=== PATIENT | female | born 1935 | race Caucasian/White ===

== ENCOUNTER 2016-07-13 14:00 | Inpatient (IN) | payer MEDICARE, BC ==
[~2016-07-13] VITALS: Ht 158.8 cm; Wt 58.5 kg
--- NOTE | ~2016-07-13 | DS ---
PATIENT'S NAME: SANTIAGO CASTILLO [facility] AGE: 81 Y [address] ROOM: [address] [address] [place] [facility] [place]: 07/18/2016 Discharge Summary DISCHARGE DATE: 07/23/2016 FAMILY PHYSICIAN: ALCIDES CABA ATTENDING PHYSICIAN: Malcom Ovalles DIAGNOSES: 1. Colonic adenocarcinoma of the transverse colon. 2. History of gastrointestinal stromal tumor. SUMMARY: Santiago Castillo is a 81-year-old female, who has a prior history of carcinoid tumor. The patient has recently underwent a colonoscopy, which revealed adenocarcinoma in the transverse colon. The patient was seen at [facility] by Dr. Ovalles on July 03 to discuss results. She had had a CT scan that revealed an area in the pelvis that measured 4.9 cm in total, which was fluid and soft tissue. The patient had also had a PET scan, which the patient reported showed no abnormalities. Dr. Ovalles discussed surgical treatment options for the adenocarcinoma. The patient was scheduled to undergo a laparoscopic possible open colon resection on July 18, 2016, at [facility]. She underwent a preoperative bowel prep and received Mefoxin 2 g IV preoperatively. She was taken to the operating room where an open right colon resection with extensive enterolysis and repair of enterotomies was performed. Please see Dr. Ovalles's procedure note for specifics. Postoperatively, the patient was allowed activity as tolerated. Langston was placed to dependent drainage. Telemetry was ordered. She was kept n.p.o. except for ice chips, hard candy, and gum. Pulmonary toiletry was encouraged. Kendalls along with Lovenox were ordered for DVT prophylaxis. Mefoxin continued for 18 hours postop. Dilaudid GORE STITCHER along with IV acetaminophen was ordered for pain control. On postop day #1, the patient was sore. She had had nausea, but that had resolved. Blood pressure was 120/65, heart rate was only 38, respirations 14. The patient appeared well. Hemoglobin was 8.8, platelets 91,000. Physical therapy and occupational therapy were ordered. She was started on clear liquids. On postop day #2, the patient denied any nausea or vomiting. She continued on clear liquids until postop day #3, at which time she was advanced to full liquids. GORE STITCHER was discontinued. Tylenol and Motrin were ordered for pain control. She was advanced to diet as tolerated the following day and arrangements were made for the patient to discharge home on July 23. DISCHARGE INSTRUCTIONS: Include no restrictions on diet, no heavy lifting. She will follow up on July [address] [place] [address] Ovalles. DISCHARGE MEDICATIONS: Include, 1. Tylenol Extra-Strength 1000 mg p.o. q.6 hours. 2. Motrin 600 mg p.o. q.8 hours. PATIENT'S NAME: SANTIAGO CASTILLO [facility] AGE: 81 Y [address] ROOM: [place] [address] [place] [facility] [place]: 07/18/2016 Discharge Summary DISCHARGE DATE: 07/23/2016 FAMILY PHYSICIAN: ALCIDES CABA ATTENDING PHYSICIAN: Malcom Ovalles 3. Levothroid 25 mcg p.o. daily. 4. Lopressor 25 mg p.o. twice daily. 5. Omeprazole 40 mg p.o. daily. 6. Sutent 37.5 mg p.o. daily. 7. Centrum multivitamin 1 tablet p.o. daily. 8. Vitamin D 1000 units p.o. daily. 9. Caltrate 600+ vitamin D 1 tablet p.o. daily. 10. Catarina 5/325 one to two p.o. q.4 hours p.r.n. 11. Carafate 1 g p.o. daily. 12. Vitamin B12 1000 mcg p.o. daily. Prescription was written for Catarina 5/325 one to two p.o. q.4 hours p.r.n. pain, dispensing 30 with no refills. Pathology results are pending at this time. For specifics on day-to-day care, please refer to the hospital chart. ARACELIS FUENTES PA-C FOR MD ABDULAZIZ VILA/sujit /[id number] d: 07/25/16620 t: 08/08/16 181, DISCHARGE SUMMARY
--- NOTE | ~2016-07-13 | OR ---
PATIENT'S NAME: SANTIAGO SINGH [facility] AGE: 81 Y [address] ROOM: [address] [address] [place] [facility] [place]: 07/18/2016 OR/Procedure Report DISCHARGE DATE: FAMILY PHYSICIAN: ALCIDES CABA ATTENDING PHYSICIAN: Malcom Davenport SURGEON: Malcom Davenport MD REPORT SPECIALIST: Brendan Pitts PA-C. DATE OF PROCEDURE: 07/18/2016 PREOPERATIVE DIAGNOSIS: Colonic adenocarcinoma transverse colon. POSTOPERATIVE DIAGNOSIS: Colonic adenocarcinoma transverse colon. PROCEDURE: 1. Right colectomy with ileocolic anastomosis. 2. Repair of enterotomies. 3. Extensive adhesiolysis. FINDINGS: The patient had very dense adhesions making mobilization of the bowel quite tedious and dangerous. The tumor was present in the proximal transverse colon. ESTIMATED BLOOD LOSS: 200 mL. COMPLICATIONS: None. INDICATIONS: The patient is a 81-year-old female who has a known history of gastrointestinal stromal tumor. However, she had a colonoscopy that revealed an adenocarcinoma. We discussed resection of this with the patient. The risks, benefits, and alternatives, which included, but were not limited to bleeding, infection, bowel injury, anastomotic leak, poor wound healing, abscess formation. She understood the risks and elected to proceed. DESCRIPTION OF PROCEDURE: The patient was taken to the operating room. She was placed supine. She was given IV sedation and subsequently intubated. Abdomen was prepped with ChloraPrep and sterilely draped. Local anesthetic was infiltrated. In the left upper quadrant, a Veress needle was initially attempted to be inserted. This did not insert easily. Because of this, we aborted this location. Following this in the right upper quadrant, local anesthetic was infiltrated. An optical viewing trocar was used with a camera inserted. Through this, we advanced into the abdominal cavity and pneumoperitoneum was induced. Upon insertion of the camera, there was noted to be some blood felt likely to be sales representative door to door from adhesion tearing from the abdominal wall. There did not appear to be Veress needle or initial trocar injury. Two more trocars were positioned. The first arm was placed in PATIENT'S NAME: SANTIAGO SINGH [facility] AGE: 81 Y [address] ROOM: [address] [address] [place] [facility] [place]: 07/18/2016 OR/Procedure Report DISCHARGE DATE: FAMILY PHYSICIAN: ALCIDES CABA ATTENDING PHYSICIAN: Malcom Davenport the mid abdomen. We attempted to lyse adhesions from this area. It was quite difficult. We were able to find another small open area in the right lower quadrant and another 5 mm trocar was inserted. Adhesiolysis was then begun. The adhesions were relatively dense. Ultimately, we were able to identify the colon. There were very dense interloop adhesions and the pelvis appeared to be mainly frozen. The descending colon was relatively easily visualized. This was very adherent at the pelvic inlet. We were able to visualize the colon up to the splenic flexure. No blue dye was present. There were still some adhesions around our trocar sites that we were not able to lyse. The transverse colon did loop up towards this. Because of this to further visualize these areas, we inserted 2 more trocars. These were both on the left abdomen, and these were both inserted under direct visualization as well. Further extensive adhesiolysis was performed laparoscopically. We then were able to further identify the colon. The tattoo was present in the proximal transverse colon. There were very dense adhesions in the right lower quadrant. We could not mobilize the terminal ileum easily. In performing adhesiolysis laparoscopically, we did create an enterotomy. We were able to control any significant small bowel content leak with a Ashish. We further mobilized this loop of bowel. We had a hard time mobilizing the small bowel. We then turned our attention to the colon. We were able to mobilize the entire right colon from the cecum to the mid transverse colon. This encompassed our planned resection. This was initially performed in a medial lateral fashion and then the peritoneal attachments were incised laterally. The right colon was completely mobile at this juncture down to what was likely our proximal and distal resection sites. However, we could not mobilize the terminal ileum safely as there were continued to be very dense adhesions in the right lower quadrant. We could not identify or separate loops of bowel and could not easily tell the bowel wall from the peritoneum. At this point in time with an enterotomy being present, we did convert to an open operation. A vertical midline incision was carried through the subcutaneous tissues and down through the fascia using electrocautery. The abdominal cavity was entered. We then performed open enterolysis. The bowel was very friable, and on gentle retraction, an enterotomy was created. This was closed in 2 layers with 3-0 Vicryl suture followed by 3-0 silk suture. There were 2 small enterotomies created in the right lower quadrant as well and repaired in 2 layers. These were leak tested. We were able to mobilize significant portion of bowel. We still had difficulty in mobilizing the terminal ileum. The loop appeared to extend down into the pelvis. With the other enterotomies that were created with these dense adhesions, we mobilized the terminal ileum but did not mobilize beyond this as we were concerned we would cause a very difficult situation if an enterotomy would be created down into the pelvis. We selected our proximal and distal resection sites and divided these areas with ANDIE staplers. The specimen was passed off. Once the bowel was divided, the colon was placed down to the small bowel. With our minimal mobility of the terminal ileum and our concerns for attempting further mobilization, we PATIENT'S NAME: SANTIAGO SINGH [facility] AGE: 81 Y [address] ROOM: [address] [address] [place] [facility] [place]: 07/18/2016 OR/Procedure Report DISCHARGE DATE: FAMILY PHYSICIAN: ALCIDES CABA ATTENDING PHYSICIAN: Malcom Davenport could not easily perform a [id number] staple anastomosis. Because of this, we did perform a hand-sewn end-to-side entero-colonic anastomosis. Posterior sutures of 3-0 silk were placed. These were serosal sutures along the entire posterior wall to hold the 2 ends in position. An enterotomy and colotomy were then created using running 3-0 PDS suture. The bowel was sewn in its entire circumference using a running 3-0 PDS suture. The anastomosis was leak tested, it was intact. Appeared to be adequate lumen size. The operative field was then inspected. We again leak tested the anastomosis as well as the areas of enterotomy. The abdominal cavity was copiously irrigated. The fluid was then removed. The midline fascia was then closed with looped 0 PDS suture and skin closure was accomplished with madina. A sterile dressing was placed. The patient was extubated and sent to recovery in good condition. MALCOM J MD LOLLY DAVENPORT/sujit /[id number] d: 07/18/16 2217 t: 07/19/16 1658, OPERATIVE SUMMARY
[~2016-07-13 14:00] MED LIST: CALTRATE 600 +1 EAC1 PO; CARAFATE1 GM PO; CENTRUM COMPLE1 EACH PO; HYDROCODON-ACE1 EAC4 PO; LEVOTHROID (SY25 MCG PO; LOPRESSOR25 MG PO; OMEPRAZOLE40 MG PO; SUTENT37.5 MG PO; VITAMIN B-121000 MCG PO; VITAMIN D1000 UNI1 PO
[2016-07-18 10:52] LABS: HEMATOCRIT 33.9 % (33.0-46.0); HEMOGLOBIN 11.2 g/dL (10.0-15.0); MCH 35.7 pg (27.0-34.0); MPV 10.5 fl (9.4-12.4); RBC 3.14 M/uL (3.50-5.50); RDW-CV 15.8 % (11.9-14.6); WBC 3.3 K/uL (4.0-11.0)
[2016-07-18 10:57] LABS: INR - (THERAPEUTIC) 1.03 (0.92-1.07); PROTIME 10.8 SECONDS (9.8-11.4)
[2016-07-18 11:05] LABS: ALBUMIN 3.5 gm/dL (3.5-5.0); ANION GAP 12.7 (10.0-19.0); CALCIUM 9.3 mg/dL (8.5-10.5); CREATININE 0.9 mg/dL (0.5-1.1); POTASSIUM 3.7 mMol/L (3.7-5.1); TOTAL BILIRUBIN 0.4 mg/dL (0.0-1.5); TOTAL PROTEIN 6.5 g/dL (6.0-8.4)
--- NOTE | 2016-07-19 04:28 | NUR ---
Significant Event: Patient arrived to floor at 1745 last night. Post op, transverse cholectomy. 6 stab sites and midline incision to abdomen with shadow drainage. Dilaudid AGILE JAVA DEVELOPER 0.2 demand/15 min lockout. Continuous rate d/c due to over sedation. C/o nausea x 1, Zofran given providing relief. IV to R) anterior forearm. Recieves IV Ofirmev Q6H, IV Lopressor Q6H, IV Mefoxin Q6H. LR currently running at 125ml/hr. Tele on with no calls, may d/c if no call for 48hrs. On 1L of O2 with sats in high 90s. Langston, call if UOP is <120 over 4 hours. VSS, SBP in the 130s-140s. Patient is NPO with sips for meds. Follow up: Monitor UOP. Pt has chemo drug that needs to be brought in by family.
[2016-07-19 05:55] LABS: HEMOGLOBIN 8.8 g/dL (10.0-15.0); MCH 35.9 pg (27.0-34.0); RBC 2.45 M/uL (3.50-5.50); RDW-CV 15.9 % (11.9-14.6); WBC 4.6 K/uL (4.0-11.0)
[2016-07-19 05:57] LABS: HEMATOCRIT 26.7 % (33.0-46.0)
[2016-07-19 06:10] LABS: ANION GAP 8.7 (10.0-19.0); BLOOD UREA NITROGEN 10 mg/dL (6-24); CALCIUM 7.8 mg/dL (8.5-10.5); CHLORIDE 106 mMol/L (96-110); CO2 27 mMol/L (22-32); CREATININE 0.7 mg/dL (0.5-1.1); ESTIMATED GFR (MDRD EQUATION) > 60; POTASSIUM 3.7 mMol/L (3.7-5.1); SODIUM 138 mMol/L (135-145)
--- NOTE | 2016-07-19 16:00 | NUR ---
SIGNIFICATN EVENT: PATIENT ALERT AND ORIENTED. 6 LAP SITES FROM COLON RESECTION. MIDLINE INCISION TO ABDOMEN. DILAUDID PRESIDENTIAL SUPPORT SPECIALIST 0.2MG PER DEMAND WITH 15 MIN LOCKOUT. NO COMPLAINTS OF NAUSEA DURING DAY. PATIENT SHOWED VERBAL AND NON VERBAL SIGNS OF PAIN BUT SHOWED RELIEF WITH PRESIDENTIAL SUPPORT SPECIALIST. RECIEVING IV OFIRMEV Q6H AND IV LOPRESSOR Q6H. PATIENT ON TELE. WAS ON BEDREST AT BEGINNING OF SHIFT BUT WAS ABLE TO WALK TO DOOR BY END OF SHIFT. NPO WITH SIPS ON WATER FOR ORAL MEDS. PATIENT ALSO SAT UP IN CHAIR FOR A FEW HOURS. CHEMO MED SUTENT BROUGHT IN BY FAMILY BUT BEING HELD AT THIS TIME PER DR. CHAMPAGNE UNTIL PATIENT IS ON A SOFT/REGULAR DIET. OK TO HAVE FEW SIPS AND ICE CHIPS. FAMILY HERE TO VISIT THIS AFTERNOON. FOLLOW UP: CONTINUE TO MONITOR.
--- NOTE | 2016-07-19 16:37 | NUR ---
SPOKE TO PATIENT REGARDING CM AND OUR ROLE. PATIENT LIVES IN OWN HOME WITH SPOUSE SHE IS PLANNING ON RETURNING THERE ONCE SHE IS READY FOR DISCHARGE. PATIENT DOES NOT ANTICIPATE ANY DISCHARGE NEEDS AT THIS TIME.
--- NOTE | 2016-07-19 17:29 | NUR ---
I HAVE REVIEWED AND AGREE WITH CHARTING DONE BY SN AL.
[2016-07-20 05:01] LABS: BASOPHIL % 0.3 %; EOSINOPHIL % 0.5 %; HEMATOCRIT 29.1 % (33.0-46.0); HEMOGLOBIN 9.5 g/dL (10.0-15.0); IMMATURE GRANULOCYTE % 0.5 %; LYMPHOCYTE # 0.9 K/uL (0.8-4.0); LYMPHOCYTE % 22.7 %; MCH 35.4 pg (27.0-34.0); MCHC 32.6 gm/dL (32.0-36.5); MCV 108.6 fl (83.0-98.0); MONOCYTE # 0.2 K/uL (0.0-1.0); MPV 10.1 fl (9.4-12.4); NEUTROPHIL # (ANC) 2.7 K/uL (1.8-7.8); NRBC % 0 /100WBC (0-0.00); RBC 2.68 M/uL (3.50-5.50); RDW-CV 16.2 % (11.9-14.6); WBC 3.8 K/uL (4.0-11.0)
[2016-07-20 05:04] LABS: PLATELET COUNT 111 K/uL (150-450)
[2016-07-20 05:14] LABS: ALBUMIN 2.7 gm/dL (3.5-5.0); ANION GAP 8.4 (10.0-19.0); BLOOD UREA NITROGEN 6 mg/dL (6-24); CALCIUM 8.1 mg/dL (8.5-10.5); CHLORIDE 107 mMol/L (96-110); CO2 28 mMol/L (22-32); CREATININE 0.6 mg/dL (0.5-1.1); ESTIMATED GFR (MDRD EQUATION) > 60; POTASSIUM 3.4 mMol/L (3.7-5.1); SODIUM 140 mMol/L (135-145)
[2016-07-20 05:15] LABS: PHOSPHORUS 1.8 mg/dL (2.5-4.9)
--- NOTE | 2016-07-20 05:46 | NUR ---
Significant Event: PATIENT IS ALERT AND ORIENTED. VSS. DILAUDID DELIVERY SUPERVISOR 0.2 MG EVERY 15 MINUTES. ON 1L O2 PER NC. PUENTE D/C'D AT 0530. DRESSINGS TO ABD. SIPS AND CHIPS. NO NAUSEA. RATES PAIN 3-4/10. Follow up:
--- NOTE | 2016-07-20 17:18 | NUR ---
SIGNIFICANT EVENT: PATIENT ALERT AND ORIENTED. STATES THAT PAIN IS DOING BETTER THAN YESTERDAY. SWITCHED FROM NPO TO CLEAR LIQUIDS. UP AND WALKING IN ROOM WITH ONE PERSON ASSIST. WALKED TO AND USED BATHROOM THREE TIMES TODAY. PATIENT STILL ON TELE. LAST DOSE OF OFIRMEV GIVEN AT 1100. FOLLOW UP: CONTINUE TO MONITOR.
--- NOTE | 2016-07-20 19:39 | NUR ---
I HAVE REVIEWED AND AGREE WITH CHARTING DONE BY SN AL.
--- NOTE | 2016-07-21 03:03 | NUR ---
Significant Event: A/O X3 AND COOPERATIVE WITH CARES. ON DILAUDID LOG HOOKER DEMAND ONLY AND IS CONTROLLING PAIN WELL. 6 LAP SITES WITH MIDLINE INCISIONS ALL DRESSING DRY/INTACT. BOWEL SOUNDS HYPOACTIVE. NO FATUS YET. PATIENT STATES SHE HAS BEEN HAVING SOME ABDOMINAL GAS PAIN OVERNIGHT. NO NAUSEA. IS ON CLEAR LIQUIDS, GOING SLOW AND TOLERATING WELL. VOIDING WELL AND FEELS LIKE SHE IS EMPTYING WELL. IV TO L) HAND FLUSHES WELL AND IV FLUIDS INFUSING WITHOUT DIFFICULTY. UP WITH SBA. SLEPT OFF/ON THROUGH NIGHT. OFF TELE NOW. Follow up:
[2016-07-21 05:26] LABS: ALBUMIN 2.7 gm/dL (3.5-5.0); ANION GAP 8.4 (10.0-19.0); BLOOD UREA NITROGEN 5 mg/dL (6-24); CALCIUM 8.2 mg/dL (8.5-10.5); CHLORIDE 106 mMol/L (96-110); CO2 28 mMol/L (22-32); CREATININE 0.5 mg/dL (0.5-1.1); ESTIMATED GFR (MDRD EQUATION) > 60; POTASSIUM 3.4 mMol/L (3.7-5.1); SODIUM 139 mMol/L (135-145)
[2016-07-21 05:30] LABS: PHOSPHORUS 1.9 mg/dL (2.5-4.9)
--- NOTE | 2016-07-21 11:45 | NUR ---
Attempted to see pt 2 times this morning. Pt was busy with nursing both times. Will attempt to see again in the afternoon. Missy Mesa, PT
--- NOTE | 2016-07-21 19:45 | NUR ---
Significant Event: Pt ambulates in room and with PT with SBA. removed dressing this am. She has madina midline to abdomen and at lap sites. No redness or drainage from incision. She tolerated clear liq and full liq and is requesting food. She has positive bowels sounds. She had 3 liq BM's today. APPLICATION INTERNSHIP was dc'd and she was started on tylenol and motrin scheduled around the clock. She denies need for pain medication. She received IV K+phos this afternoon and then was saline locked.
--- NOTE | 2016-07-22 04:23 | NUR ---
Significant Event: Patient is A&O x 3. 6 lap sites stapled, open to air. Midline incision to abdomen, stapled, open to air. IV to L) hand SL, flushes well. Scheduled Motrin Q8H and Tylenol Q6H. Ambulates with SBA to bathroom. Strict urine output. Had 4 loose stools overnight. Full liquid diet, tolerating well. Follow up: Continue per plan of care. Cancer med in patient med box, restart when patient taking solid food. It is a patient home med.
[2016-07-22 05:07] LABS: BASOPHIL % 0.7 %; EOSINOPHIL % 1.4 %; HEMATOCRIT 27.3 % (33.0-46.0); HEMOGLOBIN 8.6 g/dL (10.0-15.0); IMMATURE GRANULOCYTE % 0.4 %; LYMPHOCYTE # 0.9 K/uL (0.8-4.0); LYMPHOCYTE % 33.1 %; MCH 35.8 pg (27.0-34.0); MCHC 31.5 gm/dL (32.0-36.5); MCV 113.8 fl (83.0-98.0); MONOCYTE # 0.2 K/uL (0.0-1.0); MONOCYTE % 5.7 %; MPV 11.4 fl (9.4-12.4); NEUTROPHIL # (ANC) 1.7 K/uL (1.8-7.8); NEUTROPHIL % 58.7 %; NRBC % 0 /100WBC (0-0.00); PLATELET COUNT 90 K/uL (150-450); RDW-CV 16.5 % (11.9-14.6); WBC 2.8 K/uL (4.0-11.0)
[2016-07-22 06:10] LABS: ALBUMIN 2.7 gm/dL (3.5-5.0); ANION GAP 10.8 (10.0-19.0); BLOOD UREA NITROGEN 5 mg/dL (6-24); CALCIUM 8.6 mg/dL (8.5-10.5); CHLORIDE 107 mMol/L (96-110); CO2 27 mMol/L (22-32); CREATININE 0.7 mg/dL (0.5-1.1); ESTIMATED GFR (MDRD EQUATION) > 60; MAGNESIUM 1.8 mg/dL (1.8-2.6); PHOSPHORUS 2.4 mg/dL (2.5-4.9); POTASSIUM 3.8 mMol/L (3.7-5.1); SODIUM 141 mMol/L (135-145)
--- NOTE | 2016-07-22 10:52 | NUR ---
A-NUTRITION F/U S/P TRANVERSE COLECTOMY D/T COLONIC ADENOCARCINOMA. CURRENTLY ON CHEMO (+)BS; LOOSE STOOLS, (+)FLATUS. DENIES NAUSEA. TOLERATED CLEAR LIQUIDS AND FULL LIQUID DIET WITHOUT DIFFICULTY. LABS: NA 141, K+ 3.8, GLU 85, BUN 5, HOUSEKEEPING MANAGER 0.7, ALB 2.7 MEDS: DILAUDID DIET RX: SOFT DIET (ADVANCED TODAY AT BREAKFAST); ENSURE CLEAR TID AND ENSURE ENLIVE TID. PO INTAKE 25-100%. EST NUTR NEEDS: 2510-8221 KCALS AND 59-77 GM PROTEIN D-AT NUTRITION RISK W/INADEQUATE INTAKE OF NUTRIENTS R/T ALTERED GI FXN AEB RECENT GI SURGERY, LIQUID DIET. PT ALSO AT RISK W/UNINTENDED WT LOSS BRACELET AND BROOCH MAKER D/T ALTERED TASTE AEB PT REPORT. I-1)D/C ENSURE CLEAR D/T ADVANCEMENT OF DIET 2)CONTINUE ENSURE ENLIVE TID W/MEALS TO PROVIDE ADDITIONAL NUTRIENTS M/E-GOAL: PO INTAKE >/=50% BY NEXT F/U 1)F/U PO INTAKE, SUPPLEMENT, GI, AND POC IN 3-5 DAYS 2)ASSIST NEEDED
--- NOTE | 2016-07-22 16:03 | NUR ---
Significant Event:Patient up in chair/BR. Ambulated in aggarwal. Abdominal incision/ lap sites approximated with madina. Patient having loose stools. Routine tylenol and motrin. Minimal pain Follow up:
--- NOTE | 2016-07-23 02:16 | NUR ---
Significant Event: Patient rests in bed throughout the night. Up to bathroom with stand-by assist. Tylenol 1000mg held at 2300 as patient was sound asleep and did not wake when spoke to. Up about an hour later and reported pain of only 2 and stated she did not need the pain medication. Still having loose stools and reports that is normal for her. Chemo med restarted last night since she ate a regular diet and tolerated it well. Plesant and cooperative with cares. Follow up: Possible discharge today.
--- NOTE | 2016-07-23 10:26 | NUR ---
I agree with Tatiana Escobedo's documentation from 6a to 11 am.
[2016-07-23] MEDS ORDERED: MOTRIN600 MG PO (12:54)
[2016-07-23] MEDS ORDERED: TYLENOL EXTRA500 MG PO (12:54)
--- NOTE | 2016-07-23 15:15 | NUR ---
Patient alert and oriented x3, patient to discharge at this time Vts T98.0, BP125/69,P65,R18, 97%RA, no c/o pain or discomfort, provided teaching on discharge instrucitons and home medications, patient verbalized understanding, patient is aware she needs to call and make a follow up appointment with primary physician, patient discharged home with two sisters, belongings and home medicaiton sent with patient.
--- NOTE | 2016-07-27 11:13 | NUR ---
Post hospitalization follow up call made to patient. Patient reports that she is hurting. She is taking her pain medication, but not until the pain gets bad. Instructed patient to take medication routinely for the next day and try to get on top of the pain. Denies questions concerning her follow up appointment or medications. States the during her hospital stay "everyone was very good to me".
== END 2016-07-23 15:40 | disposition disaster alternative care site (69) | DRG 330 ==
LOC: GMSU 07-18 08:05
PROVIDERS: Nurse Anesthetist, Certified Registered; ADMIT Surgery
PROC: 0DTF4ZZ Resection of Right Large Intestine, Percutaneous Endoscopic Approach (ICD-10-PCS; principal; 2016-07-18)
PROC: 0DNL4ZZ Release Transverse Colon, Percutaneous Endoscopic Approach (ICD-10-PCS; 2016-07-18)
DX: C18.4 Malignant neoplasm of transverse colon (principal); C49.A0 Gastrointestinal stromal tumor, unspecified site; K21.9 Gastro-esophageal reflux disease without esophagitis; K66.0 Peritoneal adhesions (postprocedural) (postinfection)
CPT/HCPCS: C9113; J0131; J0694; J1170; J1650; J2405; J3480; J7030; J7050; J7120

== ENCOUNTER 2016-08-01 15:31 | Inpatient (IN) | payer MEDICARE, BC ==
[~2016-08-01] VITALS: Ht 157.5 cm; Wt 66.5 kg
--- NOTE | ~2016-08-01 | PN ---
PATIENT'S NAME: SANTIAGO CASTILLO [facility] AGE: 81 Y [address] ROOM: [address] [address] LOC[place] [facility] [place] DATE: 08/01/2016 Progress Notes DISCHARGE DATE: FAMILY PHYSICIAN: ALCIDES CABA ATTENDING PHYSICIAN: Malcom Ovalles DATE OF SERVICE: 08/08/2016 Mrs. Castillo was hospitalized on Dr. Ovalles's Surgical Service on 08/01/2016 for acute abdominal pain. A CAT scan revealed free fluid and free air compatible with perforation. Her physical examination was compatible with a perforated viscus. On 08/01/2016, Dr. Ovalles performed an exploratory laparotomy with repair of anastomotic leak. There was no significant biliary staining. It was difficult to identify the perforation. A very small opening was present on the anterior portion of the anastomosis. The patient recovered well and was discharged on the seventh postoperative day. We suspect the sunitinib predisposed the patient to the perforation. We recommend in the future holding this sunitinib until at the very earliest, the first postoperative visit. The timing on perioperative management for sunitinib is not well clarified. In the future, we would probably hold the sunitinib at least 7 days prior to a surgical procedure and at least 7 days afterwards. The patient's appointment in the [facility] was canceled. We will see her on the Sunday in August and presumably continue the sunitinib for her GI stromal tumor. While the patient was in the hospital, we reviewed the good news on the specimen obtained when Dr. Ovalles performed the right colectomy with ileocolic anastomosis on 07/18/2016. At that time, the patient had a pathologic stage I (pT2b N0, M0) grade 2 adenocarcinoma of the colon. No further adjuvant therapy is warranted. The chance for cure is excellent, over 90%, so no formal surveillance program is warranted. If the patient has a very excellent and continuing response to sunitinib, in very, we might consider a surveillance colonoscopy in July of 2017, but it is unlikely that will occur. MD JOSSELIN SPRING/sujit PATIENT'S NAME: SANTIAGO CASTILLO [facility] AGE: 81 Y [address] ROOM: [address] [address] LOC[place]: [facility] [place] DATE: 08/01/2016 Progress Notes DISCHARGE DATE: FAMILY PHYSICIAN: ALCIDES CABA ATTENDING PHYSICIAN: Malcom Ovalles /[id number] CC: MD Mikaela Lisa MD d: t: 08/08/16 1449, PROGRESS NOTES
--- NOTE | ~2016-08-01 | DS ---
PATIENT'S NAME: SANTIAGO [facility] AGE: 81 Y [address] ROOM: [address] [address] LOCATION: [facility] ADMIT DATE: 08/01/2016 Discharge Summary DISCHARGE DATE: 08/08/2016 FAMILY PHYSICIAN: ALCIDES CABA ATTENDING PHYSICIAN: Malcom Ovalles DIAGNOSES: 1. Anastomotic leak with acute abdomen, status post recent colon resection. 2. History of gastrointestinal stromal tumor, metastatic, on Sutent. 3. 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 SUMMARY: Santiago is a 81-year-old female, who has a complicated past surgical history. The patient underwent a right colon resection with Dr. 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 The patient did well postoperatively and was discharged home. She was seen in followup by Dr. Ovalles on July 31 and was doing very well at that time. On the morning of August 01, she developed severe abdominal pain. A CT scan revealed free air and free fluid concerning for perforation. She was brought to the [facility] where Dr. Ovalles noted peritoneal signs. He recommended proceeding to the operating room for an exploratory laparotomy. The patient was taken to the operating room on August 01, where she was found to have a small leak at the anastomosis. Please see Dr. Ovalles's procedure note for specifics. This area was oversewn. Postoperatively, the patient was allowed activity as tolerated. An NG tube was placed to low continuous suction. Langston to dependent drainage. Pulmonary toiletry was encouraged. Lovenox was ordered for DVT prophylaxis. She was continued on Cipro and Flagyl. A Dilaudid SHAPING MACHINE OPERATOR along with IV acetaminophen was ordered for pain control. On postop day #1, the patient was sore, but doing okay overall. She had occasional nausea. Vital signs were stable. White blood cell count was 4.2. NG tube output was 295. Physical Therapy and Occupational Therapy were consulted. On postop day #2, the patient had minimal pain. She was not passing any flatus. Her NG tube was removed. Phosphorus was noted to be low at 1.2, and this was replaced throughout her hospitalization. Dr. Vegsa did see the patient and recommended holding off on the Sutent until she returns for followup. On postop day #3, the patient was hungry. She was passing gas and had bowel movements. White blood cell count was 5.0. She was started on clear liquids, and boost shakes were also ordered. The patient was advanced to full liquids on postop day #4 and low-residue diet on postop day #5. The patient had been having several bowel movements and this was checked for C. diff which was negative. On postop day #6, the patient was doing okay. She was stooling. She had heartburn which was typical for her. The patient felt that she needed one more day to increase her strength and mobility. Cipro and Flagyl were discontinued. On postop day #7, the patient states that she wants to go home. She is working with Occupational Therapy at this time. She showered. She has very little pain. She is eating some. She still has the PATIENT'S NAME: SANTIAGO [facility] AGE: 81 Y [address] ROOM: [address] [address] LOCATION: [facility] ADMIT DATE: 08/01/2016 Discharge Summary DISCHARGE DATE: 08/08/2016 FAMILY PHYSICIAN: ALCIDES CABA. ATTENDING PHYSICIAN: Malcom Ovalles reflux. Her heartburn which again is typical for her. Arrangements were made for the patient to discharge home. DISCHARGE INSTRUCTIONS: Include no restrictions on diet. No heavy lifting for 6 weeks. She will follow up with Dr. Ovalles in [place] on August 14 for staple removal. DISCHARGE MEDICATIONS: Include resumin. Lopressor 25 mg p.o. daily. 2. Omeprazole 40 mg p.o. daily. 3. Carafate 1 g p.o. daily. 4. Levothroid 25 mcg p.o. daily before breakfast. 5. She will hold her Sutent until followup appointment. 6. Continue with multivitamin, vitamin D, Caltrate, vitamin B12. Prescriptions were written for: 1. Magnesium oxide 800 mg p.o. twice daily, dispensing 10 with no refills. 2. J-Xgyd-nfjsvoc one tablet p.o. twice daily dispensing #14 with no refills. The patient has hydrocodone at home from her last hospitalization which she can continue for pain control or she can take Tylenol as needed. For specifics on day-to-day care, please refer to the hospital chart. ARACELIS FUENTES PA-C FOR MD ABDULAZIZ VILA/conniel /[id number] d: 08/09/16 0402 t: 08/24/16 1121, DISCHARGE SUMMARY
--- NOTE | ~2016-08-01 | HP ---
PATIENT'S NAME: SANTIAGO [facility] AGE: 81 Y [address] ROOM: [place] [address] LOCATION: [facility] ADMIT DATE: 08/01/2016 History & Physical DISCHARGE DATE: FAMILY PHYSICIAN: PHYSICIAN, UNKNOWN ATTENDING PHYSICIAN: Malcom Ovalles DATE OF SERVICE: CHIEF COMPLAINT: Abdominal pain. HISTORY OF PRESENT ILLNESS: The patient is a 81-year-old female, on whom I had performed a right colectomy 2 weeks ago. She had severe adhesions. She had history of multiple operations for previous gastrointestinal stromal tumor. Her pathology was a T2 N0 tumor. She was 2 weeks out, I actually saw her yesterday in clinic where she was having no pain, bowels were working without difficulty, said she was feeling very well. She said she went home, was feeling good, sat down, ate supper. Not long after supper, she developed severe pain, described as some of the worse pain in her , said this got worse throughout the night, presented to [place] today with ongoing abdominal pain. She continues to have a low white blood cell count, but has been on her sunitinib with her abdominal pain. She had a CT scan, which revealed free fluid and free air, concerning for perforation. She was brought to [facility] where she was found to have peritonitis by examination. She never had pain similar to this in the past. PAST MEDICAL HISTORY: Please see most recent admit note as this is not changed. PAST SURGICAL HISTORY: Multiple abdominal operations I believe starting back in 2004 where her initial stromal tumor was identified. PHYSICAL EXAMINATION: GENERAL: She is an ill-appearing 81-year-old female. VITAL SIGNS: She is tachycardic. Has a low-grade temperature of 101.1. ABDOMEN: Her abdomen is rigid consistent with peritonitis. ASSESSMENT: 1. Perforated viscus. 2. Colonic adenocarcinoma. 3. Gastrointestinal stromal tumor. PLAN: PATIENT'S NAME: SANTIAGO [facility] AGE: 81 Y [address] ROOM: [place] [address] LOCATION: [facility] ADMIT DATE: 08/01/2016 History & Physical DISCHARGE DATE: FAMILY PHYSICIAN: PHYSICIAN, UNKNOWN ATTENDING PHYSICIAN: Malcom Ovalles At this point in time, I discussed the findings with Santiago. She seems to have delayed perforation likely secondary to recent operation, malnutrition, and potentially sunitinib causing delayed wound healing. I discussed with her the need for exploration and difficulties associated with this with her large number of adhesions with this being 2 weeks post laparotomy. We discussed risks of surgery, which include bleeding; infection; potential need for ileostomy; potential findings; discussed ongoing enterotomies with further leak, sepsis, and even . She understands these risks, but understands the need to proceed. Please see old hospital chart for medications, past history, and outside of her history of present illness. Review of systems has not changed. MALCOM MD LOLLY ROMAN/modl /[id number] D: [id number] T: [id number] HISTORY & PHYSICAL
--- NOTE | ~2016-08-01 | OR ---
PATIENT'S NAME: SANTIAGO [facility] AGE: 81 Y [address] ROOM: [address] [address] LOCATION: [facility] ADMIT DATE: 08/01/2016 OR/Procedure Report DISCHARGE DATE: FAMILY PHYSICIAN: PHYSICIAN, UNKNOWN ATTENDING PHYSICIAN: Malcom Davenport SURGEON: Malcom Davenport MD PEST MANAGEMENT SUPERVISOR: Brendan Pitts PA-C. DATE OF PROCEDURE: 08/01/2016 PREOPERATIVE DIAGNOSIS: Perforated viscus. POSTOPERATIVE DIAGNOSIS: Anastomotic leak. PROCEDURE: Exploratory laparotomy with repair of anastomotic leak. FINDINGS: Turbid fluid was present in the abdomen. No significant biliary staining. Initially, the perforation was not able to be identified, however, a very small opening was present on the anterior portion of the anastomosis. ESTIMATED BLOOD LOSS: Less than 100 mL. COMPLICATIONS: None. INDICATIONS: The patient is a 81-year-old female, who had a laparotomy with a right colectomy 2 weeks ago. She presented with perforated viscus and signs of peritonitis. We discussed laparotomy with the patient; the risks, benefits, and alternatives associated with this; which include, bleeding, infection, inability to find a leak, ongoing leak, and possibility of an ostomy. She understood the risks of surgery and elected to proceed. DESCRIPTION OF PROCEDURE: The patient was taken to the operating room. She was supine. She was given IV sedation and subsequently intubated. Her abdomen was prepped with ChloraPrep and sterilely draped. A vertical midline incision was carried into the subcutaneous tissues. The suture from her previous laparotomy was still present. We cut the suture and we were able to enter the abdominal cavity. Upon entering the abdominal cavity, there was turbid fluid present, it was malodorous. The bowel on the left side of the abdomen was relatively free and mobile. However, this again extended into the pelvis with dense adhesions that were there previously. We turned our attention toward the area of anastomosis, there were very dense adhesions towards this area, however, we were able to mobilize some of the bowel in order to visualize our anastomosis. There was a small amount of fibrinous exudate in this area, but no bile-staining. The anastomosis initially appeared completely intact. The bowel was very difficult to free. We were able to identify our areas of previously repaired enterotomies, these appeared PATIENT'S NAME: SANTIAGO SINGH [facility] AGE: 81 Y [address] ROOM: [place] [address] LOCATION: [facility] ADMIT DATE: 08/01/2016 OR/Procedure Report DISCHARGE DATE: FAMILY PHYSICIAN: PHYSICIAN, UNKNOWN ATTENDING PHYSICIAN: Malcom Davenport intact. We placed pressure on the colon and still we were not able to get significant bubbling from this area. We did this under water and still could not show evidence of leak. However, with further manipulation, a small bubble was able to be seen from this area of concern that was right on the anterior aspect of our previous anastomosis, right at the position of a knot. After further inspection, we were able to identify a very small perforation, only several millimeters in size. Even with manipulation of the bowel, we could not get a significant amount of material to express from this area. However, there was no other area of identifiable leak. We contemplated performing an ostomy, but with the bowel loops extending into the pelvis and inability to easily mobilize the bowel, we felt this may be riskier than performing primary repair of this small area. The small perforation was closed with interrupted 3-0 Vicryl suture. We then were able to imbricate the portion of the cecum over the anastomosis to protect it as well, this was performed using interrupted 3-0 silk suture. We again leak tested it and there was no bubbling present. The operative field was then inspected, there were no abnormalities seen at the stomach or duodenum. The colon extending down to the pelvis was also normal. The operative field was inspected, it appeared hemostatic, it was copiously irrigated. The fluid was removed. The midline fascia was then closed with looped #1 PDS suture and interrupted 0 Vicryl sutures. Subcutaneous tissues were copiously irrigated. The skin edges were then approximated with madina. Sterile dressing was placed. The patient was extubated and sent to recovery room. All sponge, needle, and instrument counts were reported as correct. Brendan Pitts was necessary for retraction, visualization, and hemostasis throughout the case. MALCOM DAVENPORT MD BJO/conniel /[id number] d: 08/02/16 0113 t: 08/08/16 1813, OPERATIVE SUMMARY
[~2016-08-01 15:31] MED LIST changes: +MOTRIN600 MG PO; +TYLENOL EXTRA500 MG PO
[2016-08-02 05:20] LABS: HEMATOCRIT 24.9 % (33.0-46.0); MCH 35.1 pg (27.0-34.0); MCHC 32.1 gm/dL (32.0-36.5); MCV 109.2 fl (83.0-98.0); MPV 9.6 fl (9.4-12.4); RBC 2.28 M/uL (3.50-5.50); RDW-CV 16.1 % (11.9-14.6); WBC 4.2 K/uL (4.0-11.0)
[2016-08-02 05:22] LABS: PLATELET COUNT 231 K/uL (150-450)
[2016-08-02 05:31] LABS: ANION GAP 11.3 (10.0-19.0); BLOOD UREA NITROGEN 12 mg/dL (6-24); CALCIUM 7.9 mg/dL (8.5-10.5); CHLORIDE 105 mMol/L (96-110); CO2 26 mMol/L (22-32); CREATININE 0.6 mg/dL (0.5-1.1); ESTIMATED GFR (MDRD EQUATION) > 60; SODIUM 138 mMol/L (135-145)
[2016-08-02 05:33] LABS: POTASSIUM 4.3 mMol/L (3.7-5.1)
[2016-08-02 05:52] LABS: ABSOLUTE NEUTROPHIL CT (ANC) 3.5 K/uL (1.8-7.8); BANDED NEUTROPHIL # 1.4 K/uL (0.0-0.1); BANDED NEUTROPHILS % 34 %; LYMPHOCYTE # 0.6 K/uL (0.8-4.0); LYMPHOCYTE % 14 %; MONOCYTE # 0.1 K/uL (0.0-1.0); SEGMENTED NEUTROPHIL # 2.1 K/uL (1.8-7.8); SEGMENTED NEUTROPHIL % 50 %
[2016-08-03 05:08] LABS: BASOPHIL % 0.2 %; EOSINOPHIL % 0.2 %; HEMATOCRIT 24.1 % (33.0-46.0); IMMATURE GRANULOCYTE % 0.7 %; LYMPHOCYTE # 0.6 K/uL (0.8-4.0); LYMPHOCYTE % 13.3 %; MCV 108.6 fl (83.0-98.0); MONOCYTE # 0.2 K/uL (0.0-1.0); MONOCYTE % 3.8 %; MPV 9.7 fl (9.4-12.4); NEUTROPHIL # (ANC) 3.7 K/uL (1.8-7.8); NEUTROPHIL % 81.8 %; NRBC % 0 /100WBC (0-0.00); RBC 2.22 M/uL (3.50-5.50); RDW-CV 15.8 % (11.9-14.6); WBC 4.5 K/uL (4.0-11.0)
[2016-08-03 05:11] LABS: HEMOGLOBIN 7.8 g/dL (10.0-15.0); MCH 35.1 pg (27.0-34.0); MCHC 32.4 gm/dL (32.0-36.5); PLATELET COUNT 290 K/uL (150-450)
[2016-08-03 05:31] LABS: ALBUMIN 2.2 gm/dL (3.5-5.0); ANION GAP 9.6 (10.0-19.0); BLOOD UREA NITROGEN 11 mg/dL (6-24); CALCIUM 8.1 mg/dL (8.5-10.5); CHLORIDE 102 mMol/L (96-110); CO2 29 mMol/L (22-32); CREATININE 0.5 mg/dL (0.5-1.1); ESTIMATED GFR (MDRD EQUATION) > 60; POTASSIUM 3.6 mMol/L (3.7-5.1); SODIUM 137 mMol/L (135-145)
[2016-08-03 05:32] LABS: PHOSPHORUS 1.2 mg/dL (2.5-4.9)
[2016-08-04 05:48] LABS: BASOPHIL % 0.4 %; EOSINOPHIL % 0.2 %; HEMOGLOBIN 8.4 g/dL (10.0-15.0); IMMATURE GRANULOCYTE % 0.6 %; LYMPHOCYTE # 0.9 K/uL (0.8-4.0); LYMPHOCYTE % 17.7 %; MCH 34.3 pg (27.0-34.0); MCHC 32.3 gm/dL (32.0-36.5); MCV 106.1 fl (83.0-98.0); MONOCYTE # 0.2 K/uL (0.0-1.0); MONOCYTE % 3.6 %; MPV 9.4 fl (9.4-12.4); NEUTROPHIL # (ANC) 3.9 K/uL (1.8-7.8); NEUTROPHIL % 77.5 %; NRBC % 0 /100WBC (0-0.00); PLATELET COUNT 329 K/uL (150-450); RBC 2.45 M/uL (3.50-5.50); RDW-CV 15.4 % (11.9-14.6)
[2016-08-04 06:02] LABS: ALBUMIN 2.2 gm/dL (3.5-5.0); ANION GAP 12.5 (10.0-19.0); CHLORIDE 103 mMol/L (96-110); CO2 26 mMol/L (22-32); CREATININE 0.5 mg/dL (0.5-1.1); ESTIMATED GFR (MDRD EQUATION) > 60; POTASSIUM 3.5 mMol/L (3.7-5.1); SODIUM 138 mMol/L (135-145)
[2016-08-04 06:04] LABS: BLOOD UREA NITROGEN 5 mg/dL (6-24); PHOSPHORUS 1.2 mg/dL (2.5-4.9)
[2016-08-05 05:28] LABS: ALBUMIN 2.3 gm/dL (3.5-5.0); ANION GAP 10.6 (10.0-19.0); BLOOD UREA NITROGEN 5 mg/dL (6-24); CALCIUM 7.9 mg/dL (8.5-10.5); CHLORIDE 103 mMol/L (96-110); CO2 27 mMol/L (22-32); CREATININE 0.5 mg/dL (0.5-1.1); ESTIMATED GFR (MDRD EQUATION) > 60; MAGNESIUM 1.6 mg/dL (1.8-2.6); POTASSIUM 3.6 mMol/L (3.7-5.1); SODIUM 137 mMol/L (135-145)
[2016-08-05 05:29] LABS: PHOSPHORUS 1.8 mg/dL (2.5-4.9)
[2016-08-06 05:53] LABS: ALBUMIN 2.3 gm/dL (3.5-5.0); ANION GAP 12.5 (10.0-19.0); BLOOD UREA NITROGEN 4 mg/dL (6-24); CALCIUM 8.2 mg/dL (8.5-10.5); CHLORIDE 103 mMol/L (96-110); CO2 26 mMol/L (22-32); CREATININE 0.5 mg/dL (0.5-1.1); ESTIMATED GFR (MDRD EQUATION) > 60; MAGNESIUM 1.6 mg/dL (1.8-2.6); POTASSIUM 3.5 mMol/L (3.7-5.1); SODIUM 138 mMol/L (135-145)
[2016-08-06 05:54] LABS: PHOSPHORUS 1.5 mg/dL (2.5-4.9)
[2016-08-08] MEDS ORDERED: K-PHOS NEUTRAL)1 TAB PO (10:17)
[2016-08-08] MEDS ORDERED: MAG-OX-400(241400 MG PO (10:17)
== END 2016-08-08 13:25 | disposition disaster alternative care site (69) | DRG 329 ==
LOC: GMED 15:31 → GMSU 16:19
PROVIDERS: Physician Assistant; ADMIT Surgery
PROC: 0DQE0ZZ Repair Large Intestine, Open Approach (ICD-10-PCS; principal; 2016-08-01)
DX: K91.89 Other postprocedural complications and disorders of digestive system (principal); K65.9 Peritonitis, unspecified; E44.1 Mild protein-calorie malnutrition; C49.A0 Gastrointestinal stromal tumor, unspecified site; Y83.2 Surgical operation with anastomosis, bypass or graft as the cause of abnormal reaction of the patient, or of later complication, without mention of misadventure at the time of the procedure; Z85.038 Personal history of other malignant neoplasm of large intestine
CPT/HCPCS: C9113; J0131; J0690; J0744; J1170; J1650; J2405; J3480; J7030; J7040; J7050; J7120; P9045